=== PATIENT | female | born 1970 | race Caucasian/White ===

== ENCOUNTER 2019-03-12 08:14 | Emergency (ER) | payer MEDICARE, OTHER ==
[~2019-03-12] VITALS: Ht 162.6 cm; Wt 75.0 kg
[~2019-03-12 08:14] MED LIST: ALPR1TAB7 ORAL; AMI100 PO; DIVA-73 PO; HYDR-3609 ORAL; HYDR-4011 PO; IBUP800T48 PO; METF-849 PO; METH750T93 PO; NALO4SPR NS; PARO40TA79 ORAL; PREG150C ORAL; TRAZ150T65 PO
[2019-03-12 08:50] VITALS: Ht 162.6 cm; Wt 75.0 kg
[2019-03-12] MEDS ORDERED: ASPIRIN 325 MG TAB PO STA (09:11)
[2019-03-12] MEDS ORDERED: IBUPROFEN 600 MG TAB PO ONE (10:30)
[2019-03-12 15:05] VITALS: BP 122/69; PULSE 91; RESP 20
== END 2019-03-12 15:14 | disposition home or self-care (01) ==
LOC: E/R 08:14
DX: R07.9 Chest pain, unspecified (principal); F17.210 Nicotine dependence, cigarettes, uncomplicated
CPT/HCPCS: 36415; 71045; 73562; 80053; 84484; 85025; 93005